=== PATIENT | female | born 1965 | race African-American/Black ===

== ENCOUNTER 2016-06-25 18:58 | Emergency (ER) | payer OTHER ==
--- NOTE | 2016-06-25 19:12 | EDM.PDOC ---
ED HPI GENERAL MEDICAL PROBLEM - General Chief Complaint: Abdominal Pain Stated Complaint: ABDOMINAL PAIN/BLEEDING RECTUM Time Seen by Provider: 06/25/16 19:12 Source of Information: Reports: Patient - History of Present Illness INITIAL COMMENTS - FREE TEXT/NARRATIVE: HISTORY AND PHYSICAL: History of present illness: [] Patient complains of mild nonspecific abdominal pain she rates 2/10 nonradiating diffuse, she has had a couple of loose stools over the last 24 hours no black or to her stool, she is also complaining of some mild nausea and bright red blood per rectum today she noted on toilet paper No fever nausea vomiting chills sweats no chest pain shortness breath headache dizziness or palpitation no bowel or urine symptoms No previous colonoscopy Review of systems: As per history of present illness and below otherwise all systems reviewed and negative. Past medical history: As per history of present illness and as reviewed below otherwise noncontributory. Surgical history: As per history of present illness and as reviewed below otherwise noncontributory. Social history: No reported history of drug or alcohol abuse. Family history: As per history of present illness and as reviewed below otherwise noncontributory. Physical exam: HEENT: Atraumatic, normocephalic, pupils reactive, negative for conjunctival pallor or scleral icterus, mucous membranes moist, throat clear, neck supple, nontender, trachea midline. Lungs: Clear to auscultation, breath sounds equal bilaterally, chest nontender. Heart: S1S2, regular, negative for clicks, rubs, or JVD. Abdomen: Soft, nondistended, nontender. Negative for masses or hepatosplenomegaly. Negative for costovertebral tenderness. Pelvis: Stable nontender. Genitourinary: Deferred. Rectal: Patient does have a small nonthrombosed external hemorrhoid at approximately 9:00 position that appears that it has bled but is no longer bleeding, guaiac was trace positive Extremities: Atraumatic, negative for cords or calf pain. Neurovascular unremarkable. Neuro: Awake, alert, oriented. Cranial nerves II through XII unremarkable. Cerebellum unremarkable. Motor and sensory unremarkable throughout. Exam nonfocal. Diagnostics: [] Lab as below hemoglobin 13 EKG Guaiac positive Therapeutics: [] Normal saline Protonix 80 mg bolus provided on arrival Recommend getting colonoscopy will be referred to surgery Impression: []. Blood per rectum External hemorrhoid nonthrombosed Definitive disposition and diagnosis as appropriate pending reevaluation and review of above. Lower Abdominal Pain Score (Numeric/FACES): 2 - Related Data Allergies Allergy/AdvReac Type Severity Reaction Status Date / Time No Known Allergies Allergy Verified 06/25/16 19:09 Home Meds: Home Meds . [No Known Home Meds] 06/25/16 [History] ED ROS GENERAL - Review of Systems Review Of Systems: ROS reveals no pertinent complaints other than HPI. ED EXAM, GENERAL - Physical Exam Exam: See Below Course - Vital Signs Last Recorded V/S: Last Vital Signs Temp 36.2 C 06/25/16 19:10 Pulse 70 06/25/16 19:10 Resp 16 06/25/16 19:10 BP 187/99 H 06/25/16 19:10 Pulse Ox 97 06/25/16 19:10 - Orders/Labs/Meds Orders: Active Orders 24 hr Category Date Time Status EKG 12 Lead [EKG Documentation Completion] [RC] STAT Care 06/25/16 19:11 Active Guaiac [OCCULT BLOOD DIAGNOSTIC] [OP] Stat Lab 06/25/16 19:12 Uncollected Sodium Chloride 0.9% [Normal Saline] 1,000 ml Med 06/25/16 19:30 Active IV STAT Medication Orders Sodium Chloride (Normal Saline) 1,000 mls @ 125 mls/hr IV STAT JESUS Last Admin: 06/25/16 19:40 Dose: 125 mls/hr Labs: Laboratory Tests 06/25/16 06/25/16 06/25/16 Range/Units 19:21 19:21 19:21 WBC 6.89 (4.0-11.0) K/uL RBC 4.85 (4.30-5.90) M/uL Hgb 13.2 (12.0-16.0) g/dL Hct 41.3 (36.0-46.0) % MCV 85.2 (80.0-98.0) fL MCH 27.2 (27.0-32.0) pg MCHC 32.0 (31.0-37.0) g/dL RDW Std Deviation 46.3 (28.0-62.0) fl RDW Coeff of [place] 15 (11.0-15.0) % Plt Count 299 (150-400) K/uL MPV 10.10 (7.40-12.00) fL Neut % (Auto) 44.2 L (48.0-80.0) % Lymph % (Auto) 47.3 H (16.0-40.0) % [place] % (Auto) 4.9 (0.0-15.0) % Eos % (Auto) 3.2 (0.0-7.0) % Baso % (Auto) 0.4 (0.0-1.5) % Neut # (Auto) 3.0 (1.4-5.7) K/uL Lymph # (Auto) 3.3 H (0.6-2.4) K/uL [place] # (Auto) 0.3 (0.0-0.8) K/uL Eos # (Auto) 0.2 (0.0-0.7) K/uL Baso # (Auto) 0.0 (0.0-0.1) K/uL Nucleated RBC % 0.0 /100WBC Nucleated RBCs # 0 K/uL INR (0.86-1.11) Sodium 144 (136-146) mmol/L Potassium 3.4 L (3.5-5.1) mmol/L Chloride 110 (98-110) mmol/L Carbon Dioxide 24 (21-31) mmol/L BUN 11 (6.0-23.0) mg/dL Creatinine 0.8 (0.6-1.5) mg/dL Est Cr Clr Drug Dosing 81.81 mL/min Estimated GFR (MDRD) > 60.0 ml/min Glucose 97 (60-110) mg/dL Calcium 9.7 (8.8-10.8) mg/dL Total Bilirubin 0.3 (0.1-1.5) mg/dL AST 27 (5-40) IU/L ALT 22 (8-54) IU/L Alkaline Phosphatase 104 (40-150) Troponin I < 0.10 (0.0-0.29) NG/ML Total Protein 8.0 (6.0-8.0) g/dL Albumin 4.4 (3.5-5.0) g/dL Globulin 3.6 H (2.0-3.5) g/dL Albumin/Globulin Ratio 1.2 L (1.3-2.8) Amylase 70 (10-90) U/L Lipase 53 (7-80) U/L Urine Color Urine Appearance Urine pH (5.0-8.0) Ur Specific [place] (1.001-1.035) Urine Protein (NEGATIVE) mg/dL Urine Glucose (UA) (NEGATIVE) mg/dL Urine Ketones (NEGATIVE) mg/dL Urine Occult Blood (NEGATIVE) Urine Nitrite (NEGATIVE) Urine Bilirubin (NEGATIVE) Urine Urobilinogen (<2.0) EU/dL Ur Leukocyte Esterase (NEGATIVE) Urine RBC (0-2/HPF) Urine WBC (0-5/HPF) Ur Epithelial Cells (NONE-FEW) Urine Bacteria (NEGATIVE) 06/25/16 06/25/16 Range/Units 19:21 19:30 WBC (4.0-11.0) K/uL RBC (4.30-5.90) M/uL Hgb (12.0-16.0) g/dL Hct (36.0-46.0) % MCV (80.0-98.0) fL MCH (27.0-32.0) pg MCHC (31.0-37.0) g/dL RDW Std Deviation (28.0-62.0) fl RDW Coeff of [place] (11.0-15.0) % Plt Count (150-400) K/uL MPV (7.40-12.00) fL Neut % (Auto) (48.0-80.0) % Lymph % (Auto) (16.0-40.0) % [place] % (Auto) (0.0-15.0) % Eos % (Auto) (0.0-7.0) % Baso % (Auto) (0.0-1.5) % Neut # (Auto) (1.4-5.7) K/uL Lymph # (Auto) (0.6-2.4) K/uL [place] # (Auto) (0.0-0.8) K/uL Eos # (Auto) (0.0-0.7) K/uL Baso # (Auto) (0.0-0.1) K/uL Nucleated RBC % /100WBC Nucleated RBCs # K/uL INR 1.01 (0.86-1.11) Sodium (136-146) mmol/L Potassium (3.5-5.1) mmol/L Chloride (98-110) mmol/L Carbon Dioxide (21-31) mmol/L BUN (6.0-23.0) mg/dL Creatinine (0.6-1.5) mg/dL Est Cr Clr Drug Dosing mL/min Estimated GFR (MDRD) ml/min Glucose (60-110) mg/dL Calcium (8.8-10.8) mg/dL Total Bilirubin (0.1-1.5) mg/dL AST (5-40) IU/L ALT (8-54) IU/L Alkaline Phosphatase (40-150) Troponin I (0.0-0.29) NG/ML Total Protein (6.0-8.0) g/dL Albumin (3.5-5.0) g/dL Globulin (2.0-3.5) g/dL Albumin/Globulin Ratio (1.3-2.8) Amylase (10-90) U/L Lipase (7-80) U/L Urine Color YELLOW Urine Appearance SLT CLOUDY Urine pH 6.0 (5.0-8.0) Ur Specific [place] >= 1.030 (1.001-1.035) Urine Protein NEGATIVE (NEGATIVE) mg/dL Urine Glucose (UA) NEGATIVE (NEGATIVE) mg/dL Urine Ketones NEGATIVE (NEGATIVE) mg/dL Urine Occult Blood MODERATE (NEGATIVE) Urine Nitrite NEGATIVE (NEGATIVE) Urine Bilirubin NEGATIVE (NEGATIVE) Urine Urobilinogen 0.2 (<2.0) EU/dL Ur Leukocyte Esterase NEGATIVE (NEGATIVE) Urine RBC 0-3 (0-2/HPF) Urine WBC 0-2 (0-5/HPF) Ur Epithelial Cells MODERATE (NONE-FEW) Urine Bacteria FEW (NEGATIVE) Meds: Medications Generic Name Dose Route Start Last Admin Trade Name Kieran PRN Reason Stop Dose Admin Sodium Chloride 1,000 mls @ 125 mls/hr 06/25/16 19:30 06/25/16 19:40 Normal Saline IV 125 mls/hr STAT JESUS Administration Discontinued Medications Generic Name Dose Route Start Last Admin Trade Name Alessandroq PRN Reason Stop Dose Admin Ondansetron HCl 8 mg 06/25/16 19:23 06/25/16 19:41 Zofran IVPUSH 06/25/16 19:24 8 mg ONETIME ONE Administration Pantoprazole Sodium 80 mg 06/25/16 19:22 06/25/16 19:44 Protonix Iv IVPUSH 06/25/16 19:23 80 mg .BOLUS ONE Administration Departure - Departure Time of Disposition: 20:16 Disposition: Home, Self-Care 01 Condition: good Clinical Impression: Bright red blood per rectum, External bleeding hemorrhoids - Discharge Information Forms: ED Department Discharge Additional Instructions: Return if symptoms persist or worsen or new concerning symptomatology develops Followup with general surgery for colonoscopy as recommended ER referral was provided to her surgery department [facility] - General Surgery Professional Building [address] [place] [address], [address] [place] [address] As well as she will be in the area for some time working below information for primary care is also provided [facility] [address] [place] [id number] The following information is given to patients seen in the emergency department who are being discharged to home. This information is to outline your options for follow-up care. We provide all patients seen in our emergency department with a follow-up referral. The need for follow-up, as well as the timing and circumstances, are variable depending upon the specifics of your emergency department visit. If you don't have a primary care physician on staff, we will provide you with a referral. We always advise you to contact your personal physician following an emergency department visit to inform them of the circumstance of the visit and for follow-up with them and/or the need for any referrals to a consulting specialist. The emergency department will also refer you to a specialist when appropriate. This referral assures that you have the opportunity for follow-up care with a specialist. All of these measure are taken in an effort to provide you with optimal care, which includes your follow-up. Under all circumstances we always encourage you to contact your private physician who remains a resource for coordinating your care. When calling for follow-up care, please make the office aware that this follow-up is from your recent emergency room visit. If for any reason you are refused follow-up, please contact the [facility] emergency department at and asked to speak to the emergency department charge nurse. - My Orders Last 24 Hours: My Active Orders 06/25/16 19:11 EKG 12 Lead [EKG Documentation Completion] [RC] STAT 06/25/16 19:12 Guaiac [OCCULT BLOOD DIAGNOSTIC] [OP] Stat 06/25/16 19:30 Sodium Chloride 0.9% [Normal Saline] 1,000 ml IV STAT - Assessment/Plan Last 24 Hours: My Active Orders 06/25/16 19:11 EKG 12 Lead [EKG Documentation Completion] [RC] STAT 06/25/16 19:12 Guaiac [OCCULT BLOOD DIAGNOSTIC] [OP] Stat 06/25/16 19:30 Sodium Chloride 0.9% [Normal Saline] 1,000 ml IV STAT
[2016-06-25] MEDS ORDERED: Pantoprazole 40 MG Vial IVPUSH ONE (19:22)
[2016-06-25] MEDS ORDERED: Ondansetron 4 MG/2 ML SDV IVPUSH ONE (19:23)
[2016-06-25] MEDS ORDERED: Sodium Chloride 0.9% 1,000 ML IV SCH (19:30)
[2016-06-25 19:51] LABS: CHLORIDE,CL 110 mmol/L (98-110); SODIUM,NA 144 mmol/L (136-146)
[2016-06-25 20:33] VITALS: BP 154/89
== END 2016-06-25 20:33 | disposition home or self-care (01) ==
LOC: MW.ED 18:58
DX: K64.4 Residual hemorrhoidal skin tags (principal)
CPT/HCPCS: 36415; 80053; 81001; 82150; 83690; 84484; 85025; 85610; 93005; 96361; 96374; 96375; 99284; C9113; J2405; J7040